=== PATIENT | female | born 2000 | race Two or more races ===

== ENCOUNTER 2024-04-29 21:35 | Emergency (ER) | payer OTHER ==
[~2024-04-29] VITALS: Ht 152.4 cm; Wt 64.9 kg
[2024-04-29] MEDS ORDERED: MEDR150D9 IM (21:50)
[2024-04-29 22:46] VITALS: BP 132/88; TEMP 97.8; O2SAT 99
== END 2024-04-29 22:45 | disposition home or self-care (01) ==
LOC: ER 21:56
DX: G24.5 Blepharospasm (principal); R20.2 Paresthesia of skin; Z90.49 Acquired absence of other specified parts of digestive tract; Z79.899 Other long term (current) drug therapy
CPT/HCPCS: A4606; A4663